=== PATIENT | male | born 1990 | race Caucasian/White ===

== ENCOUNTER 2017-02-11 21:15 | Emergency (ER) | payer OTHER ==
[2017-02-11 23:12] VITALS: BP 143/79
== END 2017-02-11 23:12 | disposition home or self-care (01) ==
LOC: ED 21:15
DX: S61.211A Laceration without foreign body of left index finger without damage to nail, initial encounter (principal); J45.909 Unspecified asthma, uncomplicated; W26.0XXA Contact with knife, initial encounter; Y93.89 Activity, other specified; Y92.89 Other specified places as the place of occurrence of the external cause; Y99.8 Other external cause status
CPT/HCPCS: A4570

== ENCOUNTER 2017-02-14 17:22 | Emergency (ER) | payer OTHER ==
[~2017-02-14] VITALS: Ht 177.8 cm; Wt 92.8 kg
[2017-02-14 17:36] VITALS: BP 138/58
== END 2017-02-14 18:45 | disposition home or self-care (01) ==
LOC: ED 17:22
DX: S61.211D Laceration without foreign body of left index finger without damage to nail, subsequent encounter (principal); F90.9 Attention-deficit hyperactivity disorder, unspecified type; J45.909 Unspecified asthma, uncomplicated; Z79.891 Long term (current) use of opiate analgesic; Z79.1 Long term (current) use of non-steroidal anti-inflammatories (NSAID); X58.XXXD Exposure to other specified factors, subsequent encounter; Y92.89 Other specified places as the place of occurrence of the external cause; Y99.8 Other external cause status

== ENCOUNTER 2017-04-09 13:15 | Emergency (ER) | payer MEDICAID ==
[2017-04-09 20:04] VITALS: BP 132/85
== END 2017-04-09 20:04 | disposition home or self-care (01) ==
LOC: ED 13:15
DX: F10.239 Alcohol dependence with withdrawal, unspecified (principal); J45.909 Unspecified asthma, uncomplicated; Z98.890 Other specified postprocedural states
CPT/HCPCS: J2060

== ENCOUNTER 2017-04-15 21:19 | Emergency (ER) | payer MEDICAID ==
[~2017-04-15] VITALS: Ht 177.8 cm; Wt 95.2 kg
[2017-04-15 22:40] LABS: BASOPHIL % 0.5 % (0-2); PLATELET COUNT 358 x10^3mcL (130-400); RED CELL DISTRIBUTION WIDTH 12.4 % (11.5-14.5)
[2017-04-15 22:50] LABS: CALCIUM 9.6 mg/dL (8.5-10.1); CARBON DIOXIDE 24.9 mmol/L (21-32); CHLORIDE SERUM 102 mmol/L (98-107); CREATININE SERUM 1.2 mg/dL (0.7-1.3); GFR1 > 60 mL/min; GLUCOSE SERUM 86 mg/dL (74-106); POTASSIUM SERUM 4.5 mmol/L (3.5-5.1); SODIUM SERUM 140 mmol/L (136-145)
[2017-04-15 22:54] LABS: ALBUMIN 4.7 g/dL (3.4-5.0); ALKALINE PHOSPHATASE 67 U/L (46-116); ALT/SGPT 39 U/L (16-63); AST/SGOT 34 U/L (15-37); BILIRUBIN TOTAL 0.2 mg/dL (0.20-1.00); CHOLESTEROL 173 mg/dL (<200); CHOLESTEROL/HDL RATIO 3.1; HDL CHOLESTEROL 55 mg/dL (40-60); LIPASE 204 IU/L (73-393); TRIGLYCERIDES 161 mg/dL (<150)
[2017-04-15 22:59] LABS: TOTAL PROTEIN, SERUM 8.3 g/dL (6.4-8.2)
[2017-04-15 23:06] LABS: FREE T4 1.05 ng/dL (0.76-1.46); FREE THYROXINE INDEX 3.4 ug/dL (1.4-4.5); T4(THYROXINE) 9.7 ug/dL (4.7-13.3)
[2017-04-15 23:17] LABS: T3 TOTAL 0.98 ng/mL
[2017-04-15 23:39] LABS: microscopic required? NO
[2017-04-15 23:50] LABS: urine erythrocyte NEGATIVE (NEGATIVE)
[2017-04-16 00:04] VITALS: BP 118/63
[2017-04-16 00:10] LABS: AMPHETAMINE QUAL UR NONE DETECTED (NEG <=1000)
== END 2017-04-16 00:04 | disposition home or self-care (01) ==
LOC: ED 21:19
PROVIDERS: Specialist
DX: F10.239 Alcohol dependence with withdrawal, unspecified (principal); F41.9 Anxiety disorder, unspecified; F90.9 Attention-deficit hyperactivity disorder, unspecified type; J45.909 Unspecified asthma, uncomplicated
CPT/HCPCS: 83880; 84439; J2060; J3411; J3475; J3490; J7030; Q0092